=== PATIENT | male | born 1955 | race African-American/Black ===

== ENCOUNTER 2025-01-17 07:35 | Inpatient (IN) | payer MEDICARE, MEDICAID ==
[~2025-01-17] VITALS: Ht 198.1 cm; Wt 86.6 kg
[~2025-01-17 07:35] MED LIST: AMLO10TA80 PO; FINA5TAB11 PO; LEVO750T68 MT; TAMS-11 PO
[2025-01-17 08:47] LABS: HEMATOCRIT. 34.3 % (42.0-52.0); HEMOGLOBIN. 11.4 g/dL (14.0-18.0); MEAN CORPUSCULAR HEMOGLOBIN 30.9 pg (28.0-32.0); MEAN CORPUSCULAR HGB CONC 33.3 g/dL (31.0-37.0); MEAN CORPUSCULAR VOLUME 92.9 fL (80.0-94.0); MEAN PLATELET VOLUME 7.1 fl (7.4-10.4); PLATELET 432 x1000/uL (130-400); RED BLOOD CELL COUNT 3.69 mill/uL (4.7-6.1); RED CELL DISTRIBUTION WIDTH 15.1 % (11.6-14.6)
[2025-01-17 08:49] LABS: DIFFERENTIAL COMMENT 1
[2025-01-17 08:55] LABS: CHLORIDE 103 mEq/L (98-107); POTASSIUM 4.6 mEq/L (3.5-5.1); SODIUM 137 mEq/L (136-145)
[2025-01-17 08:56] LABS: CARBON DIOXIDE 27 mEq/L (21-32)
[2025-01-17 09:01] LABS: GLUCOSE 124 mg/dL (70-105); UREA NITROGEN BLOOD 18 mg/dL (9-23)
[2025-01-17 09:14] LABS: CLARITY URINE TURBID (CLEAR); COLOR URINE YELLOW (YELLOW); GLUCOSE URINE NEGATIVE (NEGATIVE); KETONES URINE NEGATIVE (NEGATIVE); LEUKOCYTE ESTERASE URINE 3+ (NEGATIVE); NITRITE URINE NEGATIVE (NEGATIVE); OCCULT BLOOD URINE 3+ (NEGATIVE); PH URINE 6.5 (4.5-8.0); PROTEIN URINE 2+ (NEGATIVE); SPECIFIC GRAVITY URINE 1.008 (1.005-1.030); UROBILINOGEN URINE 0.2 E.U./dL (0.2-1.0)
[2025-01-17 09:37] LABS: WBC URINE TNTC /hpf (0-2)
[2025-01-17 09:41] LABS: BACTERIA URINE 4+
[2025-01-17 09:42] LABS: SQUAMOUS EPITHELIAL CELL URINE RARE /lpf (RARE/1+)
[2025-01-17] MEDS: CEFTRIAXONE 1GM/50ML 50 ML IV ONE (09:42)
[2025-01-17 10:30] VITALS: BP 91/62; PULSE 81; RESP 20; TEMP 36.4
[2025-01-17] MEDS ORDERED: CLONIDINE 0.1MG TABLET PO PRN (10:45)
[2025-01-17] MEDS ORDERED: IPRATROPIUM/ALBUTEROL 0.5-3(2.5)MG/3ML NEB HHN PRN (10:45)
[2025-01-17] MEDS ORDERED: ONDANSETRON HCL 4MG/2ML INJ IV PRN (10:45)
[2025-01-17 11:22] LABS: CALCIUM 9.9 mg/dL (8.7-10.4)
[2025-01-17] MEDS: FAMOTIDINE 20MG/2ML VIAL IV SCH (11:58)
[2025-01-17] MEDS: TAMSULOSIN HCL 0.4MG SR CAPSULE PO SCH (11:58)
[2025-01-17] MEDS: FINASTERIDE 5MG TABLET PO SCH (11:58)
[2025-01-17] MEDS: AMLODIPINE 10MG TABLET PO SCH (11:59)
[2025-01-17 12:00] VITALS: BP 120/68; PULSE 83; RESP 17; TEMP 36.6; O2SAT 96
[2025-01-17 12:35] LABS: PLATELET ESTIMATE INCREASED
[2025-01-17 16:00] VITALS: BP 129/68; PULSE 80; RESP 18; TEMP 36.6; O2SAT 97
[2025-01-17 18:24] LABS: *AMPHETAMINES SCREEN URINE NEGATIVE (NEGATIVE); *BARBITURATES SCREEN URINE NEGATIVE (NEGATIVE); *BENZODIAZEPINES SCREEN URINE NEGATIVE (NEGATIVE); *COCAINE SCREEN URINE NEGATIVE (NEGATIVE); CANNABINOID URINE SCREEN NEGATIVE (NEGATIVE); ECSTASY MDMA SCREEN URINE NEGATIVE (NEGATIVE); METHADONE URINE SCREEN NEGATIVE (NEGATIVE); OPIATES URINE SCREEN PRESUMPTIVE POSITIVE (NEGATIVE); PHENCYCLIDINE URINE SCREEN NEGATIVE (NEGATIVE)
[2025-01-17 20:00] VITALS: BP 118/62; PULSE 82; RESP 20; TEMP 36.7; O2SAT 95
[2025-01-17] MEDS: KETOROLAC 30MG/ML VIAL IV PRN (21:42)
[2025-01-17] MEDS: PIPERACILLIN/TAZO 3.375G/50ML 50 ML IV SCH (22:43)
[2025-01-18] VITALS: BP 116/60; RESP 20; TEMP 36.2; O2SAT 98
[2025-01-18] MEDS: SODIUM CHLORIDE 0.9% 1,000 ML IV SCH (00:05)
[2025-01-18 04:00] VITALS: BP 110/63; PULSE 70; RESP 20; TEMP 36.5; O2SAT 97
[2025-01-18 07:18] LABS: CHLORIDE 100 mEq/L (98-107); POTASSIUM 4.2 mEq/L (3.5-5.1); SODIUM 137 mEq/L (136-145)
[2025-01-18 07:20] LABS: CARBON DIOXIDE 27 mEq/L (21-32)
[2025-01-18 07:21] LABS: CALCIUM 9.3 mg/dL (8.7-10.4)
[2025-01-18 07:26] LABS: GLUCOSE 87 mg/dL (70-105); UREA NITROGEN BLOOD 17 mg/dL (9-23)
[2025-01-18 07:27] LABS: ALBUMIN 3.6 g/dL (3.2-4.8)
[2025-01-18 07:28] LABS: ALANINE AMINOTRANSFERASE 21 IU/L (10-49); ASPARTATE AMINOTRANSFERASE 19 IU/L (<34); BILIRUBIN DIRECT 0.2 mg/dL (<=3.0); BILIRUBIN TOTAL 0.7 mg/dL (0.1-1.0); PROTEIN TOTAL 6.8 g/dL (6.0-8.3); T4 FREE 0.88 ng/dL (0.89-1.76); THYROID STIMULATING HORMONE 7.37 uIU/mL (0.55-4.78)
[2025-01-18 07:29] LABS: BASOPHILS % 0.4 % (0.0-2.0); EOSINOPHILS % 2.8 % (0.0-5.0); HEMATOCRIT. 31.4 % (42.0-52.0); HEMOGLOBIN. 10.6 g/dL (14.0-18.0); LYMPHOCYTES % 10.8 % (20.0-50.0); MEAN CORPUSCULAR HEMOGLOBIN 31.5 pg (28.0-32.0); MEAN CORPUSCULAR HGB CONC 33.8 g/dL (31.0-37.0); MEAN CORPUSCULAR VOLUME 93.3 fL (80.0-94.0); MEAN PLATELET VOLUME 7.5 fl (7.4-10.4); MONOCYTES % 8.3 % (2.0-8.0); NEUTROPHILS % 77.7 % (40.0-76.0); PLATELET 400 x1000/uL (130-400); RED BLOOD CELL COUNT 3.36 mill/uL (4.7-6.1); WHITE BLOOD COUNT 11.7 x1000/uL (4.5-11.0)
[2025-01-18 08:00] VITALS: BP 125/75; PULSE 79; RESP 16; RESP 19; TEMP 36.4; O2SAT 96
[2025-01-18 12:00] VITALS: BP 109/70; PULSE 73; RESP 18; TEMP 36.6; O2SAT 96
[2025-01-18] MEDS: LEVOTHYROXINE SODIUM 75MCG TABLET PO SCH (12:34)
[2025-01-18] MEDS: ACETAMINOPHEN 325MG TABLET PO PRN (12:34)
[2025-01-18 16:00] VITALS: BP 104/76; PULSE 76; RESP 18; TEMP 36.4; O2SAT 97
[2025-01-18 20:00] VITALS: BP 117/65; PULSE 68; RESP 18; TEMP 36.6; O2SAT 98
[2025-01-19] VITALS: BP 97/61; PULSE 78; RESP 18; TEMP 36.7; O2SAT 98
[2025-01-19 04:00] VITALS: BP 120/76; PULSE 63; RESP 18; TEMP 36.2; O2SAT 98
[2025-01-19 06:32] LABS: BASOPHILS % 0.6 % (0.0-2.0); EOSINOPHILS % 3.7 % (0.0-5.0); HEMATOCRIT. 30.7 % (42.0-52.0); HEMOGLOBIN. 10.4 g/dL (14.0-18.0); MEAN CORPUSCULAR HEMOGLOBIN 31.6 pg (28.0-32.0); MEAN CORPUSCULAR HGB CONC 34.1 g/dL (31.0-37.0); MEAN CORPUSCULAR VOLUME 92.8 fL (80.0-94.0); MEAN PLATELET VOLUME 7.3 fl (7.4-10.4); MONOCYTES % 11.4 % (2.0-8.0); NEUTROPHILS % 68.3 % (40.0-76.0); PLATELET 397 x1000/uL (130-400); RED CELL DISTRIBUTION WIDTH 15.1 % (11.6-14.6)
[2025-01-19 06:33] LABS: CHLORIDE 104 mEq/L (98-107); POTASSIUM 4.7 mEq/L (3.5-5.1); SODIUM 140 mEq/L (136-145)
[2025-01-19 06:34] LABS: CALCIUM 8.8 mg/dL (8.7-10.4); CARBON DIOXIDE 26 mEq/L (21-32)
[2025-01-19 06:39] LABS: CREATININE 1.3 mg/dL (0.6-1.3); GLUCOSE 81 mg/dL (70-105); UREA NITROGEN BLOOD 26 mg/dL (9-23)
[2025-01-19] MEDS ORDERED: DEXAMETHASONE 4MG/ML 1ML VIAL ONE (07:47)
[2025-01-19] MEDS ORDERED: ONDANSETRON HCL 4MG/2ML INJ ONE (07:47)
[2025-01-19] MEDS ORDERED: LIDOCAINE HCL 1% 10 MG/ML 10ML VIAL ONE (07:48)
[2025-01-19] MEDS ORDERED: FENTANYL CITRATE/PF 50MCG/ML 2ML VIAL ONE (07:48)
[2025-01-19] MEDS ORDERED: PROPOFOL 200MG/20ML VIAL IV ONE (07:48)
[2025-01-19] MEDS ORDERED: FAMOTIDINE 20MG/2ML VIAL IV ONE (07:53)
[2025-01-19] MEDS ORDERED: ACETAMINOPHEN 1000MG/100ML 100 ML IV ONE (07:53)
[2025-01-19 08:00] VITALS: BP 131/75; PULSE 75; RESP 18; TEMP 36.7; O2SAT 99
[2025-01-19] MEDS ORDERED: FENTANYL CITRATE/PF 50MCG/ML 2ML VIAL IV PRN (08:15)
[2025-01-19] MEDS ORDERED: ONDANSETRON HCL 4MG/2ML INJ IV PRN (08:15)
[2025-01-19] MEDS ORDERED: HYDROMORPHONE HCL/PF 1MG/ML INJ IV PRN (08:15)
[2025-01-19 12:00] VITALS: BP 111/64; PULSE 72; RESP 18; TEMP 36.7; O2SAT 98
[2025-01-19 20:00] VITALS: BP 108/72; PULSE 72; RESP 19; TEMP 36.3; O2SAT 94
[2025-01-20 04:00] VITALS: BP 135/61; PULSE 59; RESP 19; TEMP 36.2; O2SAT 100
[2025-01-20 07:38] VITALS: BP 135/61; PULSE 59; TEMP 97.5; O2SAT 100
[2025-01-20 08:00] VITALS: BP 122/76; PULSE 72; RESP 19; TEMP 36.6; O2SAT 100
[2025-01-20 08:42] VITALS: PULSE 59
[2025-01-20] MEDS: DOCUSATE SODIUM 100MG CAPSULE PO PRN (08:42)
== END 2025-01-20 14:20 | disposition left against medical advice (07) | DRG 690 ==
LOC: ER 07:35 → 6EST 09:22 → EDBEDREQTM 09:25 → EDBEDREQ 09:25
PROVIDERS: ADMIT Hospitalist; ATTEND Hospitalist
PROC: 0T9B80Z Drainage of Bladder with Drainage Device, Via Natural or Artificial Opening Endoscopic (ICD-10-PCS; principal; 2025-01-19)
DX: N13.6 Pyonephrosis (principal); Z59.00 Homelessness unspecified; J98.11 Atelectasis; K40.90 Unilateral inguinal hernia, without obstruction or gangrene, not specified as recurrent; I10 Essential (primary) hypertension; I86.1 Scrotal varices; K57.30 Diverticulosis of large intestine without perforation or abscess without bleeding; Z53.29 Procedure and treatment not carried out because of patient's decision for other reasons; J44.9 Chronic obstructive pulmonary disease, unspecified; N40.1 Benign prostatic hyperplasia with lower urinary tract symptoms; R33.8 Other retention of urine; N32.89 Other specified disorders of bladder; E03.9 Hypothyroidism, unspecified
CPT/HCPCS: 36415; 76770; 80048; 80076; 80305; 81003; 83605; 84145; 84439; 84443; 85025; 87077; 87186; 97166; 99285; A4606; J0696; J1100; J1885; J2003; J2405; J2543; J2704; J3010; J3490; J7030; J0131